=== PATIENT | male | born 1975 | race African-American/Black ===

== ENCOUNTER 2018-06-23 18:49 | Emergency (ER) | payer BC ==
[2018-06-23 19:14] VITALS: PULSE 87; TEMP 98.5; BMI 59.5
[2018-06-23] MEDS ORDERED: IBUPROFEN 400 MG TABLET (FP) PO ONE ×2 (19:19)
--- NOTE | 2018-06-23 19:30 | PDOC ---
History of Present Illness - General History Source: Patient Exam Limitations: No Limitations - History of Present Illness Initial Comments: 06/23/18 20:01 A portion of this note was documented by scribe services under my direction. I have reviewed the details of the note, within reason, and agree with the documentation. The case summary and management plan written by me. X-ray chest no acute pathology Right RIBS no acute fracture Assessment and plan: This is a 43-year-old male who comes in complaining of fall and injuring hit the right side of his chest laterally and anteriorly. Patient doesn't has some tenderness on palpation however patient is morbidly obese so is difficult to assess the ribs. Patient had a x-ray of his chest and ribs that were done with no visible pathology however x-ray somewhat limited due to his patient habitus. Patient given ibuprofen and discharged home will follow up with his primary care doctor as needed <Chante Posada I - Last Filed: 06/23/18 20:01> - General History Source: Patient Exam Limitations: No Limitations - History of Present Illness Initial Comments: 06/23/18 19:31 The patient is a 43 year old male with a significant past medical history of asthma and diabetes who presents to the ER s./p trip and fall at 3PM today. Patient was at [employer], there was a missing tile on the ground, he tripped and fell onto the front right side area. Patient reports the front right side area pain is exacerbated with coughing and deep inspiration. denies any head trauma. Patient denies loss of consciousness. Patient states he has not taken any pain meds. The patient denies lightheaded, chest pain, palpitations or any precipitating factors prior to falling. Allergies: NKA Past surgical history: None reported. Social history: No reported alcohol, drug, or cigarette use. Adult ROS General: No fevers or chills, no weakness, no weight loss HEENT: No change in vision. No sore throat,. No ear pain CardioVascular: No chest pain or shortness of breath. Chest: (+) Pain to his right side. Respiratory: No cough, or wheezing. Gastrointestinal: no nausea, vomiting, diarrhea or constipation, No rectal bleeding Genitourinary: No dysuria, hematuria, or frequency Musculoskeletal: No joint or muscle pain or swelling Neurologic: No headache, vertigo, dizziness or loss of consciousness Psychiatric: nor depression Skin: No rashes or easy bruising Endocrine: no increased thirst or abnormal weight change Allergic: no skin or latex allergy All other systems reviewed and normal Basic PE GENERAL: The patient is awake, alert, and fully oriented, in no acute distress. HEAD: Normal with no signs of trauma. EYES: Pupils equal, round and reactive to light, extraocular movements intact, sclera anicteric, conjunctiva clear. Chest: (+) Tenderness over the right lower ribs laterally. Lungs clear to auscultation bilaterally. Good air entry. Cardiac: S1-S2 normal, regular rate and rhythm, no murmurs rubs or gallops EXTREMITIES: Normal range of motion, no edema. NEUROLOGICAL: Normal speech, normal gait. PSYCH: Normal mood, normal affect. SKIN: Warm, Dry, normal turgor, no rashes or lesions noted. <Quita Valdovinos - Last Filed: 06/23/18 20:10> - General Chief Complaint: Injury Stated Complaint: RT RIBCAGE, RT LOWER BACK PAIN S/P FALL Time Seen by Provider: 06/23/18 19:16 Past History - Past Medical History Asthma: Yes COPD: No Diabetes: Yes HTN: Yes - Suicide/Smoking/Psychosocial Hx Smoking History: Never smoked Have you smoked in the past 12 months: No Information on smoking cessation initiated: No Hx Alcohol Use: No Drug/Substance Use Hx: No Substance Use Type: None Hx Substance Use Treatment: No <Chante Posada I - Last Filed: 06/23/18 20:01> <Quita Valdovinos - Last Filed: 06/23/18 20:10> - Past Medical History Allergies/Adverse Reactions: Allergies Allergy/AdvReac Type Severity Reaction Status Date / Time No Known Allergies Allergy Verified 06/23/18 18:49 Home Medications: Ambulatory Orders Albuterol Sulfate Inhaler - [Ventolin HFA Inhaler -] 2 inh PO Q4H PRN 09/14/15 Budesonide/Formeterol Fumarate [SYMBICORT 160/4.5mcg -] 1 inh PO BID 09/14/15 Metformin HCl [Glucophage] 500 mg PO BID 09/14/15 Insulin Aspart [Novolog] See Protocol SQ AC #1 ml 09/15/15 Insulin Detemir [Levemir Flextouch] 20 unit SQ AM #1 ml 09/15/15 Losartan/Hydrochlorothiazide [Losartan-Hctz 100-25 mg Tab] 1 each PO DAILY #30 tablet 09/15/15 Miscellaneous Drug Not In Syst [Outpatient Lab Test] 1 each ASDIR #1 [facility] [place] Miscellaneous Medical Supply [Outpatient Order] 1 each ASDIR #1 [facility] [place] Miscellaneous Medical Supply [Outpatient Order] 1 each ASDIR #1 [facility] [place] Miscellaneous Medical Supply [Outpatient Order] 1 each ASDIR #1 [facility] [place] *Physical Exam - Vital Signs Last Vital Signs Temp Pulse Resp BP Pulse Ox 98.5 F 87 18 184/101 H 97 06/23/18 18:49 06/23/18 18:49 06/23/18 18:49 06/23/18 18:49 06/23/18 18:49 <Chante Posada I - Last Filed: 06/23/18 20:01> - Vital Signs Last Vital Signs Temp Pulse Resp BP Pulse Ox 98.5 F 87 18 184/101 H 97 06/23/18 18:49 06/23/18 18:49 06/23/18 18:49 06/23/18 18:49 06/23/18 18:49 <Quita Valdovinos - Last Filed: 06/23/18 20:10> *DC/Admit/Observation/Transfer - Discharge Dispostion Decision to Admit order: No <Chante Posada I - Last Filed: 06/23/18 20:01> - Attestations Scribe Attestion: 06/23/18 19:33 Documentation prepared by Quita Valdovinos, acting as medical center director for Chante Posada MD. <Quita Valdovinos - Last Filed: 06/23/18 20:10> Diagnosis at time of Disposition: Rib pain on right side, Fall - Discharge Dispostion Disposition: HOME Condition at time of disposition: Stable - Referrals Referrals: Thanh Weaver [Primary Care Provider] - - Patient Instructions Additional Instructions: For the pain take ibuprofen 4 tablets 3 times a day with food don't take on an empty stomach. Your blood pressure here in the emergency room was somewhat elevated however this is most likely secondary to the stress of your fall as well as the pain. However follow-up with your doctor or get your blood pressure rechecked to make sure that it comes down to within the normal range. Return to the emergency department immediately with ANY new, persistent or worsening symptoms. Continue any medications as previously prescribed by your physician. You should follow up with your primary doctor as soon as possible regarding today's emergency department visit. . Please make sure your doctor reviews the results of your emergency evaluation. Thank you for coming to the Emergency Department today for your care. It was a pleasure to see you today. Please note that your evaluation is INCOMPLETE until you follow-up with your doctor. - Post Discharge Activity
[2018-06-23 20:08] VITALS: BP 160/100
== END 2018-06-23 20:08 | disposition home or self-care (01) ==
LOC: FER 18:49
DX: R07.81 Pleurodynia (principal); W18.39XA Other fall on same level, initial encounter; Y93.89 Activity, other specified; Y92.9 Unspecified place or not applicable; J45.909 Unspecified asthma, uncomplicated; E11.9 Type 2 diabetes mellitus without complications; E66.01 Morbid (severe) obesity due to excess calories; Z68.43 Body mass index [BMI] 50.0-59.9, adult
CPT/HCPCS: 71046-TC-FY; 71101-TC-RT-FY; 99282-25